=== PATIENT | female | born 1930 | race Caucasian/White ===

== ENCOUNTER 2018-10-17 05:34 | Outpatient (CLI) | payer MEDICARE, OTHER ==
[~2018-10-17] VITALS: Ht 160 cm; Wt 59.0 kg
[2018-10-18] MEDS ORDERED: LEVO75TA6 PO (09:10)
[2018-10-18] MEDS ORDERED: TRAZ-222 PO (09:10)
[2018-10-18] MEDS ORDERED: POTA10TA10 PO (09:10)
[2018-10-18] MEDS ORDERED: MEMA10TA22 PO (09:10)
[2018-10-18] MEDS ORDERED: TOLT2TAB5 PO (09:10)
[2018-10-18] MEDS ORDERED: EZET10TA49 PO (09:10)
[2018-10-18] MEDS ORDERED: DULO30CA48 PO (09:10)
[2018-10-18] MEDS ORDERED: IRON150C3 PO (09:10)
[2018-10-18] MEDS ORDERED: DONE10TA41 PO (09:10)
[2018-10-18] MEDS ORDERED: TEMA15CA PO (09:10)
[2018-10-19] MEDS ORDERED: ACHD5005 PO (12:45)
== END 2018-10-18 09:12 | disposition home or self-care (01) ==
LOC: PREOP 05:34
PROVIDERS: ATTEND Surgery
DX: Z01.818 Encounter for other preprocedural examination (principal)

== ENCOUNTER 2018-10-19 10:06 | Day surgery (SDC) | payer MEDICARE, OTHER ==
[2018-10-19] VITALS (10 sets, daily range): BP systolic 163–180; BP diastolic 77–99
[~2018-10-19] VITALS: Ht 160 cm; Wt 59.0 kg
[~2018-10-19 10:06] MED LIST: DONE10TA41 PO; DULO30CA48 PO; EZET10TA49 PO; IRON150C3 PO; LEVO75TA6 PO; MEMA10TA22 PO; POTA10TA10 PO; TEMA15CA PO; TOLT2TAB5 PO; TRAZ-222 PO
[2018-10-19] MEDS ORDERED: ceFAZolin 2 GM/50 ML NS 50 ML ONE (10:42)
[2018-10-19] MEDS ORDERED: LACTATED RINGERS 1,000 ML IV PRN (10:54)
[2018-10-19] MEDS ORDERED: ceFAZolin 2 GM/50 ML NS 50 ML IV ONE (11:00)
[2018-10-19] MEDS ORDERED: LIDOCAINE 1% INJ 20 ML 20 ML VIAL ONE (11:39)
[2018-10-19] MEDS ORDERED: BUP/EPI 0.5% 1:200,000 (SENSORCAINE) 30 ML VIAL ONE (11:39)
--- NOTE | 2018-10-19 11:46 | Progress Note-Pre Operative ---
Pre-Operative Progress Note H&P Reviewed The H&P was reviewed, patient examined and no changes noted. 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
[2018-10-19] MEDS ORDERED: MIDAZOLAM 2 MG/2 ML (VERSED) VIAL ONE (11:54)
--- OUTSIDE RECORDS SUMMARY | 2018-10-19 12:04 | XMS REPORT | Continuity of Care Document ---
Author Organization Unknown Address Unknown Allergies Active Description Code Type Severity Reaction Onset Reported/Identified Relationship to Patient Clinical Status Yes codeine [id number] Drug Allergy Unknown N/A 10/17/2018 Medications There is no data. 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 Results There is no data. Encounters ACCT No. Visit Date/Time Discharge Status Pt. Type Provider Facility Loc./Unit Complaint [id number] 07/10/2013 13:37:00 10/02/2013 00:01:00 DIS Outpatient JUSTUS LEARY MD Via [facility] ONC [id number] 10/19/2018 08:45:00 PEN Preadmit SO LENNON DO Via [facility] SDC SQUAMOUS CELL CARCINOMA SCALP [id number] 10/17/2018 05:34:00 ACT Outpatient SO LENNON DO Via [facility] PREOP SQUAMOUS CELL CARCINOMA SCALP [id number] 10/03/2013 00:00:00 Document Registration
[2018-10-19] MEDS ORDERED: proPOfol 200 MG/20 ML (DIPRIVAN) VIAL IV ONE (12:30)
[2018-10-19] MEDS ORDERED: LIDOCAINE PF 2% 5 ML (XYLOCAINE) VIAL ONE (12:30)
--- NOTE | 2018-10-19 12:43 | Progress Note-Post Operative ---
Post-Operative Progess Note Surgeon (s)/Editorial Director (s) Surgeon SO LENNON DO Editorial Director: none Pre-Operative Diagnosis Squamous cell CA of scalp Post-Operative Diagnosis same pending path Procedure & Operative Findings Date of Procedure 10/19/18 Procedure Performed/Findings Exc squamous cell CA of scalp, > 3cm incision Anesthesia Type IV sedation by BULB FARMWORKER Estimated Blood Loss Estimated blood loss (mL): appx 10ml Specimens/Packing Specimens Removed scalp mass SO LENNON DO Oct 19, 2018 12:42
[2018-10-19] MEDS ORDERED: ACHD5005 PO (12:45)
--- NOTE | 2018-10-19 12:46 | Discharge Inst-Surgical ---
Discharge Inst-Surgical Depart Medication/Instructions New, Converted or Re-Newed RX: RX Given to Pt/Family Patient Instructions Follow up Appt: Make appointment for 1 week. [phone] Instructions: No lifting greater than 20 pounds. No strenuous activity. May shower in 24 hours, no tub bath or soaking. Use incentive spirometer at home as directed. No Smoking Skin/Wound Care: May remove bandages in am. You need to leave the Dermabond on incision it will fall off on it's own. Symptoms to Report: Appetite Changes, Extremity Discoloration, Numbness/Tingling, Swelling Increased, Bleeding Excessive, Eyesight Changes, Pain Increased, Urine Color Change, Constipation(Persistent), Fever over 101 degree F, Pain/Pressure in chest, Urinating Difficulty, Cough Up/Vomit Blood, Heart Beat Irreg/Pounding, Pain/Pressure in jaw, Cramps in feet or legs, Lightheadedness, Pain/Pressure in shoulder, Diarrhea(Persistent), Memory Changes Suddenly, Questions/Concerns, Weight gain consecutive days, Dizziness/Fainting, Nausea/Vomiting, Shortness of Breath, Weight gain over 2 pounds If questions or concerns contact your physician Or seek help at emergency department. Activity Activity as Tolerated: Yes Activity Instructions: Avoid Stress to Incision Diet Discharge Diet: No Restrictions Diet After 24 Hours: Clear Liquid if Nauseous If Any Problems/Questions/Issu: Contact Your Physician, Go to Emergency Room Skin/Wound Care Infection Signs and Symptoms: Increased Redness, Foul Odor of Wound, Increased Drainage, Skin Itchy or Has a Rash, Increased Swelling, Temperature Above 101 F Bathing Instructions: Shower Stitches/[place]/Dermabond Dis: Care of SO Maciel DO Oct 19, 2018 12:46
--- NOTE | 2018-10-19 15:00 | NUR ---
THIS RN CALLED REPORT TO JEREMY LALA AT [facility] IN [place], [place].
--- NOTE | 2018-10-19 15:08 | Anesthesia-General Post-Op ---
MAC Patient Condition Mental Status/LOC: Same as Preop Cardiovascular: Satisfactory Nausea/Vomiting: Absent Respiratory: Satisfactory Pain: Controlled Complications: Absent Post Op Complications Complications None Follow Up Care/Instructions Patient Instructions None needed. Anesthesiology Discharge Order Discharge Order Patient is doing well, no complaints, stable vital signs, no apparent adverse anesthesia problems. No complications reported per nursing. ALIA ABREU CRNA Oct 19, 2018 15:08
--- NOTE | 2018-10-19 20:51 | OPERATIVE REPORT ---
DATE OF SERVICE: 10/19/2018 PREOPERATIVE DIAGNOSIS: Squamous cell carcinoma of the scalp. POSTOPERATIVE DIAGNOSIS: Squamous cell carcinoma of the scalp. PROCEDURE: Excision of squamous cell carcinoma approximately 3.2 cm incision. SURGEON: Jamie Adams DO FACILITIES TECHNICIAN: None. ANESTHESIA: IV sedation by TC OPERATOR. SPECIMEN: Squamous cell cancer. Sutured with a short suture closest to the forehead and a long suture closest to the left ear. BLOOD LOSS: Less than 5 mL. FLUIDS: Per anesthesia. POSTOPERATIVE CONDITION: Stable. INDICATION FOR PROCEDURE: The patient is an 79-year-old female who had a squamous cell carcinoma that was biopsied wanted to get it removed. We had a discussion regarding elliptical incision or just a circular incision. She did not want a large elliptical incision. She wants the circular incision. She knew that there would be left with like a "crater" at the end when this was done and this be left open. This is what she wanted. FINDINGS: The patient had a squamous cell carcinoma removed. Marked short stitch closed at the forehead and long stitch closed at the left ear. Sent to pathology. PROCEDURE NOTE: After informed consent was obtained, the patient was brought to the operating room, placed on the table in supine position. She was sterilely prepped and draped in normal fashion. Local lidocaine was used to infiltrate around this squamous cell cancer. Then using a #15 blade did a circular incision around this going down all the way to the scalp removing this and passed this off table. There was lot of bleeding from the vessels in the skin. This was controlled with Bovie electrocautery as well as with some pressure. It was a circular diameter about 3.2 cm, when we closed it was about 3.8 cm. Elected to close this with some 3-0 nylon just to get a better cosmetic result for the patient, slight bulging at the anterior and posterior aspect of it because it was a [employer], but close pretty nicely. Copiously irrigated with normal saline. Closed the tissue with four 3-0 nylon simple sutures. Area was then cleaned and dried. Pressure dressing placed and patient then transferred to recovery room in stable condition. Sponge, instrument and needle count correct at the end of the case. Job ID: [id number] DocumentID: [id number] Dictated Date: 10/19/2018 13:42:13 Bus Washer Date: 10/19/2018 20:51:04 Dictated By: JAMIE ADAMS, DO
== END 2018-10-19 14:40 | disposition home or self-care (01) ==
LOC: SDC 10:06
PROVIDERS: ATTEND Surgery
DX: C44.42 Squamous cell carcinoma of skin of scalp and neck (principal); Z11.2 Encounter for screening for other bacterial diseases; Z88.5 Allergy status to narcotic agent; Z96.653 Presence of artificial knee joint, bilateral; Z79.899 Other long term (current) drug therapy
CPT/HCPCS: 87081

== ENCOUNTER 2019-03-24 10:03 | Outpatient (CLI) | payer MEDICARE, OTHER ==
[~2019-03-24] VITALS: Ht 160 cm; Wt 68.2 kg
[~2019-03-24 10:03] MED LIST changes: +ACHD5005 PO; -DULO30CA48 PO; +DULO30CA49 PO
[2019-03-24] MEDS ORDERED: CHOL100045 PO (10:17)
[2019-03-24] MEDS ORDERED: ASPI-586 PO (10:17)
[2019-03-24] MEDS ORDERED: ACET-93 PO (10:17)
[2019-03-24] MEDS ORDERED: ZOLP10TA5 PO (10:17)
== END 2019-03-24 10:23 ==
LOC: PREOP 10:03
PROVIDERS: ATTEND Surgery
DX: Z01.818 Encounter for other preprocedural examination (principal)

== ENCOUNTER 2019-03-29 09:48 | Day surgery (SDC) | payer MEDICARE, OTHER ==
[2019-03-29] VITALS (10 sets, daily range): BP systolic 147–172; BP diastolic 72–86
[~2019-03-29] VITALS: Ht 160 cm; Wt 68.2 kg
[~2019-03-29 09:48] MED LIST changes: +ACET-93 PO; +ASPI-586 PO; +CHOL100045 PO; -MEMA10TA22 PO; +MEMA10TA57 PO; -TRAZ-222 PO; +TRZ50T PO; +ZOLP10TA5 PO
[2019-03-29] MEDS ORDERED: LACTATED RINGERS 1,000 ML IV PRN (09:59)
[2019-03-29] MEDS ORDERED: ceFAZolin 2 GM/50 ML NS 50 ML IV ONE (10:00)
--- NOTE | 2019-03-29 10:02 | Progress Note-Pre Operative ---
Pre-Operative Progress Note H&P Reviewed The H&P was reviewed, patient examined and no changes noted. Time Seen by Provider: 10:00 Date H&P Reviewed: Mar 29, 2019 Time H&P Reviewed: 10:01 Pre-Operative Diagnosis: Squamous Cell CA of scalp SO LENNON DO Mar 29, 2019 10:02 POS
[2019-03-29] MEDS ORDERED: DEXAMETHASONE 10 MG/ML (DECADRON) 1 ML VIAL ONE (10:30)
[2019-03-29] MEDS ORDERED: proPOfol 200 MG/20 ML (DIPRIVAN) VIAL IV ONE (10:30)
[2019-03-29] MEDS ORDERED: ONDANSETRON 4 MG/2 ML (SDV) Z0FRAN ONE (10:30)
[2019-03-29] MEDS ORDERED: LIDOCAINE PF 2% 5 ML (XYLOCAINE) VIAL ONE (10:30)
[2019-03-29] MEDS ORDERED: MIDAZOLAM 2 MG/2 ML (VERSED) VIAL ONE (10:31)
[2019-03-29] MEDS ORDERED: fentaNYL INJECTION 100 MCG/2 ML AMP ONE (10:31)
[2019-03-29] MEDS ORDERED: SEVOFLURANE (ULTANE) 15 ML INHAL SOLN ONE ×3 (10:33→11:14)
[2019-03-29] MEDS ORDERED: BUP/EPI 0.5% 1:200,000 (MARCAINE) 10ML VIAL IJ ONE (10:35)
--- NOTE | 2019-03-29 11:26 | Progress Note-Post Operative ---
Post-Operative Progess Note Surgeon (s)/Power Plant Operations Manager (s) Surgeon SO LENNON DO Power Plant Operations Manager: none Pre-Operative Diagnosis Squamous Cell CA of scalp Post-Operative Diagnosis same pending path Procedure & Operative Findings Date of Procedure 03/29/19 Procedure Performed/Findings Exc Scalp mass, 6.2 x 2.4 cm elliptical incision Anesthesia Type LMA Estimated Blood Loss Estimated blood loss (mL): 20ml Specimens/Packing Specimens Removed scalp mass SO LENNON DO Mar 29, 2019 11:26 POS
[2019-03-29] MEDS ORDERED: ACHD5005 PO (11:28)
--- NOTE | 2019-03-29 11:29 | Discharge Inst-Surgical ---
Discharge Inst-Surgical Depart Medication/Instructions New, Converted or Re-Newed RX: RX Given to Pt/Family Patient Instructions Follow up Appt: Make appointment for 1 week. [phone] Instructions: May shower in 24 hours, no tub bath or soaking. Use incentive spirometer at home as directed. No Smoking Skin/Wound Care: May remove bandages in am. You need to leave the Dermabond on incision it will fall off on it's own. Symptoms to Report: Appetite Changes, Extremity Discoloration, Numbness/Tingling, Swelling Increased, Bleeding Excessive, Eyesight Changes, Pain Increased, Urine Color Change, Constipation(Persistent), Fever over 101 degree F, Pain/Pressure in chest, Urinating Difficulty, Cough Up/Vomit Blood, Heart Beat Irreg/Pounding, P ain/Pressure in jaw, Cramps in feet or legs, Lightheadedness, Pain/Pressure in shoulder, Diarrhea(Persistent), Memory Changes Suddenly, Questions/Concerns, Weight gain consecutive days, Dizziness/Fainting, Nausea/Vomiting, Shortness of Breath, Weight gain over 2 pounds If questions or concerns contact your physician Or seek help at emergency department. Activity Activity as Tolerated: Yes Activity Instructions: Avoid Stress to Incision Driving Instructions: No Driving/Refer to Dr. Serna Discharge Diet: No Restrictions Diet After 24 Hours: Clear Liquid if Nauseous If Any Problems/Questions/Issu: Contact Your Physician, Go to Emergency Room Skin/Wound Care Infection Signs and Symptoms: Increased Redness, Foul Odor of Wound, Increased Drainage, Skin Itchy or Has a Rash, Increased Swelling, Temperature Above 101 F Bathing Instructions: Shower Stitches/[place]/Dermabond Dis: Care of Stiineses SO LENNON DO Mar 29, 2019 11:29 POS
[2019-03-29] MEDS ORDERED: fentaNYL INJECTION 100 MCG/2 ML AMP IVP ONE (11:45)
[2019-03-29] MEDS ORDERED: ONDANSETRON 4 MG/2 ML (SDV) Z0FRAN IVP PRN (11:45)
--- NOTE | 2019-03-30 14:07 | OPERATIVE REPORT ---
DATE OF SERVICE: 03/29/2019 PREOPERATIVE DIAGNOSIS: Squamous cell carcinoma of the scalp. POSTOPERATIVE DIAGNOSIS: Squamous cell carcinoma of the scalp, pending pathology. PROCEDURE: Excision of squamous cell carcinoma. An elliptical incision 6.2 cm x 2.4 cm down to the [place] of the scalp. SPECIMEN: Scalp mass. BLOOD LOSS: Less than 20 mL. FLUIDS: Per anesthesia. POSTOPERATIVE CONDITION: Stable. INDICATION FOR PROCEDURE: The patient is an 88-year-old female who unfortunately had regrowth of a squamous cell cancer on top of her head needed to get this completely removed. FINDINGS: The patient had 6.2 x 2.4 cm elliptical incision made down to the galea just below the skull removed and sent to pathology. PROCEDURE NOTE: After informed consent was obtained, the patient was brought to the operating room, placed on the operating table in supine position. She was sterilely prepped and draped in normal fashion. We did after shaved some of her hair, then made an elliptical incision around this cancer measured about 6.2 x 2.4 cm. First infiltrated with about 20 mL of local lidocaine, then made the incision with #15 blade, carried down through the skin into subcutaneous tissue, deepened down to subcutaneous tissue with Bovie electrocautery down to the galea just above the skull, took this out en bloc and then tacked it for orientation. Bleeding was controlled with Bovie electrocautery, then created flaps anteriorly and posteriorly to be able to bring this through the skin together it was very hard to try and get this together. Finally, able to get almost all the way together, I used four interrupted vertical mattress sutures and then 4 simple sutures of 2-0 nylon. Area was cleaned and dried, pressure dressing placed and the patient then transferred to recovery room in stable condition. Sponge, instrument and needle count correct at the end of the case. Job ID: [id number] DocumentID: [id number] Dictated Date: 03/30/2019 09:28:49 Clinical Systems Analyst Date: 03/30/2019 14:07:41 Dictated By: DO OSCAR WORLEY
--- OUTSIDE RECORDS SUMMARY | 2019-04-23 23:58 | XMS REPORT | Continuity of Care Document ---
Author Organization Unknown Address Unknown Phone Unavailable Allergies Active Description Code Type Severity Reaction Onset Reported/Identified Relationship to Patient Clinical Status Yes codeine [id number] Drug Allergy Unknown N/A 10/17/2018 Medications There is no data. 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 10/17/2018 Ot V58.0 ENCO UNTER FOR RADIOTHERAPY 10/18/2018 DELTEMO DO, SO B Ot Z01.8 18 ENCOUNTER FOR OTHER PREPROCEDURAL EXAMIN 10/18/2018 DELTEMO PONCE, SO B Ot Z01.8 18 ENCOUNTER FOR OTHER PREPROCEDURAL EXAMIN 10/19/2018 CITLALLI PONCE, SO B Ot 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 CELL CARCINOMA OF SKIN OF SCALP 10/19/2018 CITLALLI PONCE SO B Ot Z11.2 ENCOUNTER FOR SCREENING FOR OTHER BACTER 10/19/2018 DELTEMO DO, SO B Ot Z79.8 99 OTHER RETIREMENT (CURRENT) DRUG THERAPY 10/19/2018 CITLALLI PONCE, SO B Ot Z88.5 ALLERGY STATUS TO NARCOTIC AGENT STATUS 10/19/2018 DELTEMO DO, SO B Ot 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, BILAT 10/20/2018 CITLALLI DO, SO B Ot 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 CELL CARCINOMA OF SKIN OF SCALP 10/20/2018 DELTEMO DO, SO B Ot Z11.2 ENCOUNTER FOR SCREENING FOR OTHER BACTER 10/20/2018 DELTEMO DO, SO B Ot Z79.8 99 OTHER RETIREMENT (CURRENT) DRUG THERAPY 10/20/2018 CITLALLI PONCE SO B Ot Z88.5 ALLERGY STATUS TO NARCOTIC AGENT STATUS 10/20/2018 EMELINA LENNON DOIC B Ot 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, BILAT 10/21/2018 EMELINA LENNON DOIC B Ot 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 CELL CARCINOMA OF SKIN OF SCALP 10/21/2018 CITLALLI PONCE SO B Ot Z11.2 ENCOUNTER FOR SCREENING FOR OTHER BACTER 10/21/2018 CITLALLI PONCE SO B Ot Z79.8 99 OTHER RETIREMENT (CURRENT) DRUG THERAPY 10/21/2018 EMELINA LENNON DOIC B Ot Z88.5 ALLERGY STATUS TO NARCOTIC AGENT STATUS 10/21/2018 EMELINA LENNON DOIC B Ot 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, BILAT 03/28/2019 CITLALLI PONCE SO B Ot Z01.8 18 ENCOUNTER FOR OTHER PREPROCEDURAL EXAMIN 03/30/2019 CITLALLI PONCE SO B Ot Z01.8 18 ENCOUNTER FOR OTHER PREPROCEDURAL EXAMIN 04/03/2019 CITLALLI PONCE SO B Ot 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 CELL CARCINOMA OF SKIN OF SCALP 04/03/2019 CITLALLI PONCE SO B Ot I10 ESSENTIAL (PRIMARY) HYPERTENSION 04/03/2019 EMELINA LENNON DOIC B Ot Z79.8 99 OTHER INTERNET E COMMERCE SPECIALIST (CURRENT) DRUG THERAPY 04/03/2019 EMELINA LENNON DOIC B Ot Z88.1 ALLERGY STATUS TO OTHER ANTIBIOTIC AGENT 04/03/2019 CITLALLI PONCE SO B Ot Z88.5 ALLERGY STATUS TO NARCOTIC AGENT STATUS Procedures There is no data. Results Test Result Range Methicillin resistant Staphylococcus aur eus (MRSA) screening culture - 10/19/18 10:43 Methicillin resistant Staphylococcus aureus (MRSA) scr eening culture NEG NRG Methicillin resistant Staphylococcus aur eus (MRSA) screening culture - 03/29/19 10:10 Methicillin resistant Staphylococcus aureus (MRSA) scr eening culture NEG NRG Encounters ACCT No. Visit Date/Time Discharge Status Pt. Type Provider Facility Loc./Unit Complaint [id number] 03/29/2019 09:48:00 019 13:50:00 DIS Outpatient SO LENNON DO Via [facility] SQUAMOUS CELL CARCINOMA [id number] 03/24/2019 10:03:00 019 10:23:00 DIS Outpatient SO LENNON DO Via [facility] PREOP SQUAMOUS CELL CARCINOMA [id number] 10/19/2018 10:06:00 019 14:40:00 DIS Outpatient SO LENNON DO Via [facility] SDC SQUAMOUS CELL CARCINOMA SCALP [id number] 10/17/2018 05:34:00 019 09:12:00 DIS Outpatient SO LENNON DO Via [facility] PREOP SQUAMOUS CELL CARCINOMA SCALP [id number] 07/10/2013 13:37:00 014 00:01:00 DIS Outpatient SAPPHIRE SINGER, JUSTUS Syed Via [facility] ONC [id number] 10/03/2013 00:00:00 Document Registration
== END 2019-03-29 13:50 | disposition home or self-care (01) ==
LOC: SDC 09:48
PROVIDERS: ATTEND Surgery
DX: C44.42 Squamous cell carcinoma of skin of scalp and neck (principal); I10 Essential (primary) hypertension; Z88.5 Allergy status to narcotic agent; Z88.1 Allergy status to other antibiotic agents; Z79.899 Other long term (current) drug therapy
CPT/HCPCS: 87081; 88305

== ENCOUNTER 2019-11-06 05:37 | Outpatient (RCR) | payer MEDICARE, OTHER ==
[~2019-11-06] VITALS: Ht 157 cm; Wt 68.1 kg
[2019-11-06] MEDS ORDERED: ZOLP6.252 PO (14:20)
[2019-11-06] MEDS ORDERED: DONE10TA12 PO (14:20)
[2019-11-06] MEDS ORDERED: ASPI-999 PO (14:20)
[2019-11-06] MEDS ORDERED: CALC-823 PO (14:20)
[2019-11-06] MEDS ORDERED: CHOL100048 PO (14:20)
[2019-11-06] MEDS ORDERED: LEVO88TA54 PO (14:20)
[2019-11-06] MEDS ORDERED: POTA10CA43 PO (14:20)
[2019-11-06] MEDS ORDERED: MEMA10TA2 PO (14:20)
[2019-11-08] MEDS ORDERED: TRAM50TA3 PO (13:49)
== END 2019-11-06 15:03 | disposition home or self-care (01) ==
LOC: PREOP 05:37
PROVIDERS: ATTEND Surgery
DX: Z01.818 Encounter for other preprocedural examination (principal); Z01.812 Encounter for preprocedural laboratory examination; Z20.828 Contact with and (suspected) exposure to other viral communicable diseases
CPT/HCPCS: 87635

== ENCOUNTER 2019-11-08 10:19 | Day surgery (SDC) | payer MEDICARE, OTHER ==
[2019-11-08] VITALS (8 sets, daily range): BP systolic 147–196; BP diastolic 68–89
[~2019-11-08] VITALS: Ht 157 cm; Wt 68.1 kg
[~2019-11-08 10:19] MED LIST changes: +ASPI-999 PO; +CALC-823 PO; +CHOL100048 PO; +DONE10TA12 PO; +LEVO88TA54 PO; +MEMA10TA2 PO; +POTA10CA43 PO; +ZOLP6.252 PO
[2019-11-08] MEDS ORDERED: LACTATED RINGERS 1,000 ML IV PRN (10:52)
[2019-11-08] MEDS ORDERED: ceFAZolin 2 GM IV Premixed 50 ML IV ONE (11:00)
--- OUTSIDE RECORDS SUMMARY | 2019-11-08 11:32 | XMS REPORT | Continuity of Care Document ---
Author Organization Unknown Address Unknown Phone Unavailable Allergies Active Description Code Type Severity Reaction Onset Reported/Identified Relationship to Patient Clinical Status Yes codeine [id number] Drug Allergy Unknown N/A 10/17/[id number] love Allergy Unknown N/A 11/06/2019 Medications There is no data. 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 10/12/2018 Ot V58.0 ENCO UNTER FOR RADIOTHERAPY 10/17/2018 Ot 154.1 ETHAN GNANT NEOPL RECTUM 10/17/2018 Ot V58.0 ENCO UNTER FOR RADIOTHERAPY 10/18/2018 SO LENNON DO Ot Z01.8 18 ENCOUNTER FOR OTHER PREPROCEDURAL EXAMIN 10/18/2018 SO LENNON DO Ot Z01.8 18 ENCOUNTER FOR OTHER PREPROCEDURAL EXAMIN 10/19/2018 SO LENNON DO Ot 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 CELL CARCINOMA OF SKIN OF SCALP 10/19/2018 SO LENNON DO Ot Z11.2 ENCOUNTER FOR SCREENING FOR OTHER BACTER 10/19/2018 SO LENNON DO Ot Z79.8 99 OTHER [facility] (CURRENT) DRUG THERAPY 10/19/2018 SO LENNON DO Ot Z88.5 ALLERGY STATUS TO NARCOTIC AGENT STATUS 10/19/2018 DELMAN DO, SO B Ot 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, BILAT 10/20/2018 CITLALLI DO, SO B Ot 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 CELL CARCINOMA OF SKIN OF SCALP 10/20/2018 CITLALLI DO, SO B Ot Z11.2 ENCOUNTER FOR SCREENING FOR OTHER BACTER 10/20/2018 CITLALLI DO, SO B Ot Z79.8 99 OTHER TUB ATTENDANT (CURRENT) DRUG THERAPY 10/20/2018 CITLALLI PONCE, SO B Ot Z88.5 ALLERGY STATUS TO NARCOTIC AGENT STATUS 10/20/2018 RAMILATEMO DO, SO B Ot 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, BILAT 10/21/2018 CITLALLI DO, SO B Ot 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 CELL CARCINOMA OF SKIN OF SCALP 10/21/2018 CITLALLI PONCE, SO B Ot Z11.2 ENCOUNTER FOR SCREENING FOR OTHER BACTER 10/21/2018 RAMILATEMO DO SO B Ot Z79.8 99 OTHER [facility] (CURRENT) DRUG THERAPY 10/21/2018 CITLALLI PONCE SO B Ot Z88.5 ALLERGY STATUS TO NARCOTIC AGENT STATUS 10/21/2018 RAMILATEMO , SO B Ot 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, BILAT 03/24/2019 CITLALLI PONCE, SO B Ot Z01.8 18 ENCOUNTER FOR OTHER PREPROCEDURAL EXAMIN 03/28/2019 CITLALLI DO, SO B Ot Z01.8 18 ENCOUNTER FOR OTHER PREPROCEDURAL EXAMIN 03/29/2019 CITLALLI DO, SO B Ot 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 CELL CARCINOMA OF SKIN OF SCALP 03/29/2019 CITLALLI PONCE, SO B Ot I10 ESSENTIAL (PRIMARY) HYPERTENSION 03/29/2019 CITLALLI PONCE, SO B Ot Z79.8 99 OTHER [facility] (CURRENT) DRUG THERAPY 03/29/2019 CITLALLI PONCE, SO B Ot Z88.1 ALLERGY STATUS TO OTHER ANTIBIOTIC AGENT 03/29/2019 CITLALLI PONCE SO B Ot Z88.5 ALLERGY STATUS TO NARCOTIC AGENT STATUS 03/30/2019 CITLALLI DO, SO B Ot Z01.8 18 ENCOUNTER FOR OTHER PREPROCEDURAL EXAMIN 04/03/2019 CITLALLI DO, SO B Ot 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 CELL CARCINOMA OF SKIN OF SCALP 04/03/2019 CITLALLI DO, SO B Ot I10 ESSENTIAL (PRIMARY) HYPERTENSION 04/03/2019 CITLALLI PONCE, SO B Ot Z79.8 99 OTHER [facility] (CURRENT) DRUG THERAPY 04/03/2019 CITLALLI PONCE, SO B Ot Z88.1 ALLERGY STATUS TO OTHER ANTIBIOTIC AGENT 04/03/2019 CITLALLI PONCE, SO B Ot Z88.5 ALLERGY STATUS TO NARCOTIC AGENT STATUS 05/18/2019 CITLALLI PONCE SO B Ot 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 CELL CARCINOMA OF SKIN OF SCALP 05/18/2019 CITLALLI PONCE SO B Ot I10 ESSENTIAL (PRIMARY) HYPERTENSION 05/18/2019 CITLALLI PONCE, SO B Ot Z79.8 99 OTHER [facility] (CURRENT) DRUG THERAPY 05/18/2019 CITLALLI PONCE, SO B Ot Z88.1 ALLERGY STATUS TO OTHER ANTIBIOTIC AGENT 05/18/2019 CITLALLI PONCE, SO B Ot Z88.5 ALLERGY STATUS TO NARCOTIC AGENT STATUS 11/06/2019 CITLALLI PONCE, SO B Ot Z01.8 12 ENCOUNTER FOR PREPROCEDURAL LABORATORY E 11/06/2019 CITLALLI PONCE SO B Ot Z01.8 18 ENCOUNTER FOR OTHER PREPROCEDURAL EXAMIN 11/06/2019 CITLALLI PONCE, SO B Ot Z20.8 28 CONTACT W AND EXPOSURE TO OTH VIRAL COMM Procedures There is no data. Results Test [...] Status Pt. Type Provider Facility Loc./Unit Complaint [id number] 11/06/2019 05:37:00 020 15:03:00 DIS Outpatient SO LENNON DO Via [facility] PREOP SQUAMOUS CELL CARCINOMA [id number] 07/18/2019 08:15:00 020 23:59:59 CLS Preadmit OTHER, UNLISTED Via [facility] RAD RIB PAIN ON RT SIDE, HX OF LUNG CA [id number] 03/29/2019 09:48:00 019 13:50:00 DIS Outpatient SO LENNON DO Via [facility] SQUAMOUS CELL CARCINOMA [id number] 03/24/2019 10:03:00 019 10:23:00 DIS Outpatient SO LENNON DO Via [facility] PREOP SQUAMOUS CELL CARCINOMA [id number] 10/19/2018 10:06:00 019 14:40:00 DIS Outpatient SO LENNON DO Via [facility] SQUAMOUS CELL CARCINOMA SCALP [id number] 10/17/2018 05:34:00 019 09:12:00 DIS Outpatient SO LENNON DO Via [facility] PREOP SQUAMOUS CELL CARCINOMA SCALP [id number] 07/10/2013 13:37:00 014 00:01:00 DIS Outpatient SAPPHIRE SINGER, JUSTUS Syed Via [facility] ONC [id number] 11/08/2019 10:19:[address] Outpatient SO LENNON DO Via [facility] SQUAMOUS CELL CARCINOMA [id number] 10/03/2013 00:00:00 Document Registration
[2019-11-08] MEDS ORDERED: MIDAZOLAM 2 MG/2 ML (VERSED) VIAL ONE (12:49)
[2019-11-08] MEDS ORDERED: fentaNYL INJECTION 100 MCG/2 ML AMP ONE (12:49)
[2019-11-08] MEDS ORDERED: proPOfol 200 MG/20 ML (DIPRIVAN) VIAL IV ONE (12:49)
[2019-11-08] MEDS ORDERED: LIDOCAINE PF 2% 5 ML (XYLOCAINE) VIAL ONE (12:50)
[2019-11-08] MEDS ORDERED: ONDANSETRON 4 MG/2 ML (SDV) Z0FRAN ONE (12:50)
[2019-11-08] MEDS ORDERED: DEXAMETHASONE 10 MG/ML (DECADRON) 1 ML VIAL ONE ×2 (12:50→13:44)
[2019-11-08] MEDS ORDERED: SEVOFLURANE (ULTANE) 15 ML INHAL SOLN ONE (12:50)
[2019-11-08] MEDS ORDERED: BUP/EPI 0.5% 1:200,000 (SENSORCAINE) 30 ML VIAL ONE (13:01)
[2019-11-08] MEDS ORDERED: LIDOCAINE/EPI 1%-1:100,000 (XYLOCAINE) 20ML ONE (13:02)
--- NOTE | 2019-11-08 13:16 | Progress Note-Pre Operative ---
Pre-Operative Progress Note H&P Reviewed The H&P was reviewed, patient examined and no changes noted. Time Seen by Provider: 13:14 Date H&P Reviewed: Nov 08, 2019 Time H&P Reviewed: 13:14 Pre-Operative Diagnosis: Forehead squamous cell CA SO LENNON DO Nov 08, 2019 13:16
--- NOTE | 2019-11-08 13:47 | Progress Note-Post Operative ---
Post-Operative Progess Note Surgeon (s)/Shot Tube Machine Tender (s) Surgeon SO LENNON DO Shot Tube Machine Tender: none Pre-Operative Diagnosis Forehead squamous cell CA Post-Operative Diagnosis same pending path Procedure & Operative Findings Date of Procedure 11/08/19 Procedure Performed/Findings Excision of Forehead Squamous cell CA, 4.8 x 3.5 cm down on top of bone Anesthesia Type LMA Estimated Blood Loss Estimated blood loss (mL): scant Specimens/Packing Specimens Removed forehead squamous cell, 4.8 x 3.5 cm SO LENNON DO Nov 08, 2019 13:47
[2019-11-08] MEDS ORDERED: TRAM50TA3 PO (13:49)
--- NOTE | 2019-11-08 13:50 | Discharge Inst-Surgical ---
Discharge Inst-Surgical Depart Medication/Instructions New, Converted or Re-Newed RX: RX Given to Pt/Family Patient Instructions Follow up Appt: Make appointment for 1 week. [phone] Instructions: No strenuous activity. May shower in 24 hours, no tub bath or soaking. Use incentive spirometer at home as directed. No Smoking Skin/Wound Care: May remove bandages in am. You need to change dressing daily, can come in to the office for this. Symptoms to Report: Appetite Changes, Extremity Discoloration, Numbness/Tingling, Swelling Increased, Bleeding Excessive, Eyesight Changes, Pain Increased, Urine Color Change, Constipation(Persistent), Fever over 101 degree F, Pain/Pressure in chest, Urinating Difficulty, Cough Up/Vomit Blood, Heart Beat Irreg/Pounding, Pain/Pressure in jaw, Cramps in feet or legs, Lightheadedness, Pain/Pressure in shoulder, Diarrhea(Persistent), Memory Changes Suddenly, Questions/Concerns, Weight gain consecutive days, Dizziness/Fainting, Nausea/Vomiting, Shortness of Breath, Weight gain over 2 pounds If questions or concerns contact your physician Or seek help at emergency department. Activity Activity as Tolerated: Yes Driving Instructions: No Driving/Refer to Dr. Serna Discharge Diet: No Restrictions Diet After 24 Hours: Clear Liquid if Nauseous If Any Problems/Questions/Issu: Contact Your Physician, Go to Emergency Room Skin/Wound Care Infection Signs and Symptoms: Increased Redness, Foul Odor of Wound, Increased Drainage, Skin Itchy or Has a Rash, Increased Swelling, Temperature Above 101 F Bathing Instructions: SO Arevalo DO Nov 08, 2019 13:50
--- NOTE | 2019-11-08 14:03 | Anesthesia-General Post-Op ---
General Patient Condition Mental Status/LOC: Same as Preop Cardiovascular: Satisfactory Nausea/Vomiting: Absent Respiratory: Satisfactory Pain: Controlled Complications: Absent Post Op Complications Complications None Follow Up Care/Instructions Patient Instructions None needed. Anesthesia/Patient Condition Patient Condition Patient is doing well, no complaints, stable vital signs, no apparent adverse anesthesia problems. No complications reported per nursing. ALIA ABREU CRNA Nov 08, 2019 14:03
[2019-11-08] MEDS ORDERED: fentaNYL INJECTION 100 MCG/2 ML AMP IVP ONE (14:15)
[2019-11-08] MEDS ORDERED: ONDANSETRON 4 MG/2 ML (SDV) Z0FRAN IVP PRN (14:15)
--- NOTE | 2019-11-09 04:43 | OPERATIVE REPORT ---
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 PROCEDURE: Excision of squamous cell cancer of the forehead a 4.8 x 3.5 cm incision down to the skull. SURGEON: Jamie Adams DO NATUROPATHIC PHYSICIAN: None. ANESTHESIA: General endotracheal tube. SPECIMEN: Scalp mass and skin measuring 4.8 x 3.5 cm. BLOOD LOSS: Scant. FLUIDS: Per anesthesia. POSTOPERATIVE CONDITION: Stable. INDICATION FOR PROCEDURE: The patient is an 88-year-old female, who unfortunately has had trouble with a squamous cell cancer. She has actually had 2 resections and it kept coming back and actually worse the next time it came back. At this time, elected to have a large resection and to leave it open to let it heal by secondary intent. FINDINGS: The patient had the cancer removed and sent to pathology. PROCEDURE NOTE: After informed consent was obtained, the patient was brought to the operating room, placed on the operating table in supine position. Her hair was shaved and then she was sterilely prepped and draped in normal fashion. Local lidocaine was used to infiltrate the area around the squamous cell cancer and then made an incision turned out to be almost an ovoid incision measuring about 4.8 cm x 3.5 cm down to the skull. Used a #15 blade to make the incision, then deepened down through the skin with a Bovie electrocautery down to the skull removing this and passed this off table, marked it at the 6 o'clock position with a short stitch at the 9 o'clock position with a long stitch. Area was irrigated and then hemostasis obtained and then a dressing packed. The patient tolerated the procedure. Sponge, instrument and needle count correct at the end of the case. Job ID: [id number] DocumentID: [id number] Dictated Date: 11/08/2019 18:44:38 Edi Manager Date: 11/09/2019 04:42:42 Dictated By: JAMIE ADAMS DO
== END 2019-11-08 15:45 | disposition home or self-care (01) ==
LOC: SDC 10:19
PROVIDERS: ATTEND Surgery
DX: C44.42 Squamous cell carcinoma of skin of scalp and neck (principal); I10 Essential (primary) hypertension; E78.5 Hyperlipidemia, unspecified; Z88.1 Allergy status to other antibiotic agents; Z88.5 Allergy status to narcotic agent; Z79.82 Long term (current) use of aspirin; Z79.890 Hormone replacement therapy; Z79.899 Other long term (current) drug therapy; Z87.891 Personal history of nicotine dependence; Z85.038 Personal history of other malignant neoplasm of large intestine; Z88.0 Allergy status to penicillin; Z96.653 Presence of artificial knee joint, bilateral; Z11.2 Encounter for screening for other bacterial diseases
CPT/HCPCS: 87081; 88305